=== PATIENT | female | born 1950 | race Caucasian/White ===

== ENCOUNTER 2018-12-31 01:05 | Emergency (ER) | payer OTHER ==
[2018-12-31 01:27] VITALS: BMI 28.6
[2018-12-31 04:41] LABS: HEMATOCRIT 43.4 % (32.4-45.2); HEMOGLOBIN 15.5 GM/dL (10.7-15.3); MCH 31.2 pg (25.7-33.7); MCHC 35.8 g/dl (32.0-36.0); MEAN CELL VOLUME 87.3 fl (80-96); MEAN PLT VOLUME 9.1 fl (7.5-11.1); PLATELET COUNT 223 K/MM3 (134-434); RBC 4.97 M/mm3 (3.60-5.2); RDW 12.8 % (11.6-15.6); WHITE BLOOD COUNT 10.4 K/mm3 (4.0-10.0)
[2018-12-31 05:11] LABS: ALBUMIN 4.2 g/dl (3.4-5.0); ALK PHOS 83 U/L (45-117); ANION GAP 6 MMOL/L (8-16); BILIRUBIN,TOTAL 0.6 mg/dL (0.2-1); BLOOD UREA NITROGEN 12 mg/dL (7-18); CALCIUM 8.5 mg/dL (8.5-10.1); CHLORIDE 103 mmol/L (98-107); CO2 25 mmol/L (21-32); CREATININE 0.6 mg/dL (0.55-1.3); GLUCOSE,RANDOM 113 mg/dL (74-106); LIPASE 190 U/L (73-393); POTASSIUM 4.2 mmol/L (3.5-5.1); SGOT/AST 28 U/L (15-37); SGPT/ALT 38 U/L (13-61); SODIUM 135 mmol/L (136-145)
--- NOTE | 2018-12-31 05:21 | PDOC ---
History of Present Illness - General Chief Complaint: Pain, Acute Stated Complaint: ABD PAIN Time Seen by Provider: 12/31/18 04:00 - History of Present Illness Initial Comments: 68 year old female with PMH of HTN presenting with sudden onset nausea, vomiting , diarrhea, and generalized crampy abdominal pain since 21:00 the night before. Patient denies any abdominal surgical history fevers, chills, chest pain, cough or other symptoms. States that he 12/31/18 06:27 Past History - Past Medical History Allergies/Adverse Reactions: Allergies Allergy/AdvReac Type Severity Reaction Status Date / Time No Known Allergies Allergy Verified 12/31/18 04:27 Home Medications: Ambulatory Orders Amlodipine Besylate [Norvasc -] 10 mg PO DAILY 12/31/18 Lisinopril 20 mg PO DAILY 12/31/18 COPD: No HTN: Yes - Suicide/Smoking/Psychosocial Hx Smoking Status: No Smoking History: Never smoked Number of Cigarettes Smoked Daily: 0 Information on smoking cessation initiated: No Hx Alcohol Use: No Drug/Substance Use Hx: No Substance Use Type: None *Physical Exam - Vital Signs Last Vital Signs Temp Pulse Resp BP Pulse Ox 98.1 F 87 20 140/74 99 12/31/18 01:06 12/31/18 01:06 12/31/18 01:06 12/31/18 01:06 12/31/18 04:41 Moderate Sedation - Procedure Monitoring Vital Signs: Procedure Monitoring Vital Signs Temperature 98.1 F 12/31/18 01:06 Pulse Rate 87 12/31/18 01:06 Respiratory Rate 20 12/31/18 01:06 Blood Pressure 140/74 12/31/18 01:06 O2 Sat by Pulse Oximetry (%) 99 12/31/18 04:41 ED Treatment Course - LABORATORY CBC & Chemistry Diagram: 12/31/18 04:30 12/31/18 04:30 - ADDITIONAL ORDERS Additional order review: Laboratory Results 12/31/18 04:30 Sodium 135 L Potassium 4.2 Chloride 103 Carbon Dioxide 25 Anion Gap 6 L BUN 12 Creatinine 0.6 Creat Clearance w eGFR > 60 Random Glucose 113 H Calcium 8.5 Total Bilirubin 0.6 AST 28 ALT 38 Alkaline Phosphatase 83 Creatine Kinase 146 Troponin I < 0.02 Total Protein 8.0 Albumin 4.2 Lipase 190 *DC/Admit/Observation/Transfer - Referrals Referrals: Jerel Sterling MD [Primary Care Provider] - - Patient Instructions - Post Discharge Activity
[2018-12-31] MEDS ORDERED: SODIUM CHLORIDE 0.9% 500 ML INFUS.BAG IV ONE (05:35)
[2018-12-31] MEDS ORDERED: FAMOTIDINE 20 MG/50 ML IVPB 20 MG/50 ML MG IVPB ONE ×2 (05:36→06:01)
[2018-12-31] MEDS ORDERED: MAG HYDROX/AL HYDROX/SIMETH 30 ML UNIT-DOSE CUP PO ONE (05:36)
--- NOTE | 2018-12-31 05:37 | PDOC ---
Attending Attestation - Resident Resident Name: Rachel Simmons - ED Attending Attestation I have performed the following: I have examined & evaluated the patient, The case was reviewed & discussed with the resident, I agree w/resident's findings & plan - HPI HPI: 01/02/19 02:57 68-year-old female with sudden onset of lower abdominal pain. - Physicial Exam PE: 01/02/19 02:58 Agree with resident's exam - Medical Decision Making 01/02/19 02:58 68-year-old female with lower abdominal pain On reevaluation patient has point tenderness over the left lower quadrant Patient signed out to day shift pending CT scan to rule out diverticulitis
[2018-12-31] MEDS ORDERED: MAG HYDROX/AL HYDROX/SIMETH 30 ML UNIT-DOSE CUP ONE (06:01)
[2018-12-31 06:56] LABS: URINE APPEARANCE CLEAR; URINE BILIRUBIN NEGATIVE (<2.0 mg/dL); URINE COLOR STRAW; URINE GLUCOSE (UA) NEGATIVE (NEGATIVE); URINE KETONE NEGATIVE (NEGATIVE); URINE LEUK ESTERASE TRACE (NEGATIVE); URINE NITRITE NEGATIVE (NEGATIVE); URINE PROTEIN NEGATIVE (NEGATIVE); URINE UROBILINOGEN NEGATIVE mg/dL (0.2-1.0)
[2018-12-31 07:38] LABS: EPI CELLS RARE /HPF (FEW)
--- NOTE | 2018-12-31 08:42 | PDOC ---
*Physical Exam - Vital Signs Last Vital Signs Temp Pulse Resp BP Pulse Ox 98.1 F 87 20 140/74 99 12/31/18 01:06 12/31/18 01:06 12/31/18 01:06 12/31/18 01:06 12/31/18 04:41 ED Treatment Course - LABORATORY CBC & Chemistry Diagram: 12/31/18 04:30 12/31/18 04:30 - ADDITIONAL ORDERS Additional order review: Laboratory Results 12/31/18 12/31/18 06:30 04:30 Sodium 135 L Potassium 4.2 Chloride 103 Carbon Dioxide 25 Anion Gap 6 L BUN 12 Creatinine 0.6 Creat Clearance w eGFR > 60 Random Glucose 113 H Calcium 8.5 Total Bilirubin 0.6 AST 28 ALT 38 Alkaline Phosphatase 83 Creatine Kinase 146 Troponin I < 0.02 Total Protein 8.0 Albumin 4.2 Lipase 190 Urine Color Straw Urine Appearance Clear Urine pH 7.0 Ur Specific [place] 1.009 L Urine Protein Negative Urine Glucose (UA) Negative Urine Ketones Negative Urine Blood 2+ H Urine Nitrite Negative Urine Bilirubin Negative Urine Urobilinogen Negative Ur Leukocyte Esterase Trace Urine WBC (Auto) 2 Urine RBC (Auto) 2 Ur Epithelial Cells Rare 12/31/18 04:30 RBC 4.97 MCV 87.3 MCHC 35.8 RDW 12.8 MPV 9.1 - Medications Given in the ED: ED Medications Discontinued Medications Generic Name Dose Route Start Last Admin Trade Name Ayanq PRN Reason Stop Dose Admin Al Hydroxide/Mg Hydroxide 30 ml 12/31/18 05:36 12/31/18 06:13 Mylanta Oral Suspension - PO 12/31/18 05:37 30 ml ONCE ONE Administration Famotidine/Sodium Chloride 20 mg in 50 mls @ 100 mls/hr 12/31/18 05:36 06:13 Pepcid 20 Mg Premixed Ivpb - IVPB 12/31/18 06:05 100 mls/hr ONCE ONE Administration Sodium Chloride 1,000 ml 12/31/18 05:35 12/31/18 06:12 Normal Saline - IV 12/31/18 05:36 1,000 ml ONCE ONE Administration Medical Decision Making - Medical Decision Making Patient signed out to me from night team with LLQ abdominal pain pending CT due to concern for diverticulitis CTAP results: Normal appendix. Prominent uterus for age with central hypodensity enhancing lesion probably myoma. Correlate with pelvic ultrasound. Fatty liver. Colonic diverticulosis without CT evidence of diverticulitis. Patient is pain free and requests DC. Will send her home with appropriate return precautions and follow up. *DC/Admit/Observation/Transfer Diagnosis at time of Disposition: Abdominal pain - Discharge Dispostion Disposition: HOME Condition at time of disposition: Improved Decision to Admit order: No - Referrals Referrals: Jerel Sterling MD [Primary Care Provider] - - Patient Instructions Printed Discharge Instructions: Acute Abdominal Pain, DI for Viral Gastroenteritis -- Adult, DI for Bacterial Gastroenteritis -- Adult Additional Instructions: You came into the ER with abdominal pain. We believe you have gastroenteritis - Please see attached handout for further explanation. Drink plenty of fluids. Take tylenol/mortin/advil/ibuprofen as needed for pain control. Schedule a follow up appointment with your pcp in the next 3 to 5 days to make sure you are getting better and being taken care of. 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 Come back to the Er if your pain worsens, you get a fever, start vomiting, or have any other new or worsening concerns. Thank you for coming to the [facility] ER. We hope you feel better soon! Print Language: GUYANESE - Post Discharge Activity
[2018-12-31 09:46] VITALS: BP 145/81; PULSE 76; TEMP 98
--- NOTE | 2018-12-31 16:28 | EKG ---
Test Reason : Blood Pressure : / mmHG Vent. Rate : 081 BPM Atrial Rate : 081 BPM P-R Int : 182 ms QRS Dur : 080 ms QT Int : 390 ms P-R-T Axes : 036 -02 041 degrees QTc Int : 453 ms NORMAL SINUS RHYTHM INFERIOR INFARCT , AGE UNDETERMINED ABNORMAL ECG WHEN COMPARED WITH ECG OF 28-JUL-2016 08:27, INFERIOR INFARCT IS NOW PRESENT QT HAS LENGTHENED Confirmed by Logan Jay ([id number]) on 12/31/2018 4:28:17 PM Referred By: Confirmed By:Logan Jay
== END 2018-12-31 09:46 | disposition home or self-care (01) ==
LOC: JER 01:05
PROC: 3E033GC Introduction of Other Therapeutic Substance into Peripheral Vein, Percutaneous Approach (ICD-10-PCS; principal; 2018-12-31)
DX: K52.9 Noninfective gastroenteritis and colitis, unspecified (principal); I10 Essential (primary) hypertension
CPT/HCPCS: 36415; 74177-TC; 80053; 81003; 81015; 82550; 83605; 83690; 84484; 85027; 87086; 93005; 93010; 96365; 99285-25

== ENCOUNTER 2021-09-14 09:49 | Emergency (ER) | payer OTHER ==
[2021-09-14 10:03] VITALS: BMI 32.5
[2021-09-14 11:56] LABS: BASO % 0.6 % (0-2.0); EOS % 1.3 % (0-4.5); HEMATOCRIT 47.9 % (32.4-45.2); HEMOGLOBIN 16.4 GM/dL (10.7-15.3); LYMPH % 28.8 % (8-40); MCH 29.7 pg (25.7-33.7); MCHC 34.3 g/dl (32.0-36.0); MEAN CELL VOLUME 86.6 fl (80-96); MEAN PLT VOLUME 9.1 fl (7.5-11.1); MONO % 8.4 % (3.8-10.2); NEUT % 60.9 % (42.8-82.8); PLATELET COUNT 223 10^3/uL (134-434); RBC 5.53 M/mm3 (3.60-5.2); RDW 13.1 % (11.6-15.6); WHITE BLOOD COUNT 3.5 K/mm3 (4.0-10.0)
[2021-09-14 12:01] LABS: EPI CELLS 24 /uL (0-25.1); HYALINE CASTS 1 /uL (0-3.1); URINE APPEARANCE CLEAR; URINE BACTERIA 14 /uL (0-1359); URINE BILIRUBIN NEGATIVE (NEGATIVE); URINE COLOR YELLOW; URINE GLUCOSE (UA) NEGATIVE (NEGATIVE); URINE KETONE NEGATIVE (NEGATIVE); URINE LEUK ESTERASE 2+ (NEGATIVE); URINE NITRITE NEGATIVE (NEGATIVE); URINE PROTEIN 1+ (NEGATIVE); URINE RBC 11 /uL (0-23.9); URINE UROBILINOGEN 0.2 mg/dL (0.2-1.0); URINE WBC 59 /uL (0-25.8)
[2021-09-14 12:12] LABS: CHLORIDE 107 mmol/L (98-107); SODIUM 141 mmol/L (136-145)
[2021-09-14 12:14] LABS: CALCIUM 9.8 mg/dL (8.5-10.1)
[2021-09-14 12:15] LABS: ALBUMIN 4.4 g/dl (3.4-5.0); ANION GAP 5 MMOL/L (8-16); BLOOD UREA NITROGEN 9.4 mg/dL (7-18); CO2 29 mmol/L (21-32); GLUCOSE,RANDOM 122 mg/dL (74-106)
[2021-09-14 12:18] LABS: CREATININE 0.8 mg/dL (0.55-1.3); SGOT/AST 24 U/L (15-37); SGPT/ALT 39 U/L (13-61)
[2021-09-14 12:20] LABS: BILIRUBIN,TOTAL 0.4 mg/dL (0.2-1); TOT PROT 8.6 g/dl (6.4-8.2)
[2021-09-14 12:21] LABS: ALK PHOS 93 U/L (45-117)
[2021-09-14] MEDS ORDERED: CEFTRIAXONE 1,000 MG in DEXTROSE 5%-WATER - 50 ML IVPB ONE (13:16)
[2021-09-14] MEDS ORDERED: SODIUM CHLORIDE 1,000 ML IV STA (13:34)
[2021-09-14] MEDS ORDERED: CEFTRIAXONE 1 GM/50 ML BAG ONE (13:36)
[2021-09-14 13:56] VITALS: BP 149/77; PULSE 65; TEMP 98.3
[2021-09-14] MEDS ORDERED: MECLIZINE HCL 25 MG TABLET (FP) PO ONE (15:33)
[2021-09-14] MEDS ORDERED: MECLIZINE HCL 25 MG TABLET (FP) ONE (17:07)
== END 2021-09-14 18:02 | disposition home or self-care (01) ==
LOC: JER 09:49
PROC: 3E03329 Introduction of Other Anti-infective into Peripheral Vein, Percutaneous Approach (ICD-10-PCS; principal; 2021-09-14)
PROC: 3E0337Z Introduction of Electrolytic and Water Balance Substance into Peripheral Vein, Percutaneous Approach (ICD-10-PCS; 2021-09-14)
DX: R42 Dizziness and giddiness (principal); R11.0 Nausea; N30.00 Acute cystitis without hematuria
CPT/HCPCS: 36415; 71046-TC-FY; 80053; 81003; 82550; 84484; 85025; 87086; 93005; 93010; 96361; 96365; 99284-25; C9803; U0003; U0005

== ENCOUNTER 2023-10-24 08:30 | Emergency (ER) | payer OTHER ==
[2023-10-24 08:40] VITALS: BP 165/82; PULSE 69; RESP 18; TEMP 98.2; BMI 32.2
[2023-10-24] MEDS ORDERED: LIDOCAINE 5% TOPICAL PATCH TP ONE (09:38)
[2023-10-24] MEDS ORDERED: KETOROLAC TROMETHAMINE 30 MG/1 ML VIAL IM ONE (09:38)
[2023-10-24] MEDS ORDERED: KETOROLAC TROMETHAMINE 30 MG/1 ML VIAL ONE (09:53)
[2023-10-24] MEDS ORDERED: LIDOCAINE 4% PATCH TP ONE (09:53)
[2023-10-24] MEDS ORDERED: LIDOCAINE PATCH REMOVAL MC ONE (22:00)
== END 2023-10-24 11:15 | disposition home or self-care (01) ==
LOC: JER 08:30
PROC: 3E0233Z Introduction of Anti-inflammatory into Muscle, Percutaneous Approach (ICD-10-PCS; principal; 2023-10-24)
DX: M54.42 Lumbago with sciatica, left side (principal)
CPT/HCPCS: 99284-25